=== PATIENT | female | born 1990 | race Caucasian/White ===

== ENCOUNTER → 2018-12-13 | Outpatient (CLI) | payer BC | LOC: ZCOL.LAB 16:08 | DX: L02.91 Cutaneous abscess, unspecified (principal) ==

== ENCOUNTER 2018-12-15 10:47 | Inpatient (IN) | payer BC ==
[~2018-12-15] VITALS: Ht 167.6 cm; Wt 127.3 kg
[2018-12-15] MEDS ORDERED: AVASTIN 100M25 MG/ML IV (11:06)
[2018-12-15] MEDS ORDERED: DOXYCYCLINE HY100 MG PO (11:07)
[2018-12-15] MEDS ORDERED: ZYRTEC 10MG10 MG PO (11:07)
[2018-12-15] MEDS ORDERED: GLUCOPHAGE850 MG/TAB PO (11:08)
[2018-12-15] MEDS ORDERED: HCTZ12.5TAB PO (11:08)
[2018-12-15] MEDS ORDERED: ATROVENT INHALE14 GM IH (11:09)
[2018-12-15] MEDS ORDERED: PROAIR HFA0.09 MG/AC IH (11:09)
--- NOTE | 2018-12-15 11:10 | NUR ---
Pt arrived to room 309 at this time. She is up walking in the room independently. She is A/O x3. Pt reports pain with ambulation and movement. RLQ to abdomen redenned and warm, bruising to where I&D was performed. More redness under R breast. Attempted IV start twice unsuccessfully. LILLIE Key started 20G to R wrist, flushes without complications. POC discussed with patient who verbalizes understanding. No further needs, call light within reach.
[2018-12-15 11:26] VITALS: BP 139/90; PULSE 93; TEMP 98
[2018-12-15 12:27] LABS: BASO % 0.3 % (0.0-2.0); EOS # 0.4 (0.0-0.7); EOS % 3.5 % (0-4.0); GRAN # 7.7 (1.4-6.5); GRAN % 71.6 % (42.2-75.2); HEMATOCRIT 41.3 % (37.0-47.0); HEMOGLOBIN 13.7 g/dl (12.5-16.0); LYMPH # 1.9 (1.2-3.4); LYMPH % 17.8 % (20.0-51.0); MEAN CELL VOLUME 91 fl (80.0-100.0); MEAN CORPUSCULAR HEMOGLOBIN 30 pg (27.0-31.0); MEAN CORPUSCULAR HGB CONC 33 g/dl (33.0-37.0); MONO # 0.7 (0.1-0.6); MONO % 6.4 % (1.7-9.3); PLATELET COUNT 252 K/mm3 (130-400); RED BLOOD COUNT 4.55 M/mm3 (4.10-5.30); REDCELL DISTRIBUTION WIDTH-CV 13.2 % (11.5-14.5)
[2018-12-15 12:42] LABS: ALBUMIN 4.3 gm/dL (3.5-5.0); BILIRUBIN,TOTAL 0.6 mg/dL (0.0-1.0); CALCIUM 9.7 mg/dL (8.4-10.2); CREATININE, serum 0.45 (0.52-1.25); POTASSIUM 4.2 mmol/L (3.4-5.0); TOTAL PROTEIN 8.2 gm/dL (6.4-8.2)
[2018-12-15 13:08] LABS: INR 1.2 (0.8-3.0); PROTHROMBIN TIME 13.1 SECONDS (9.7-12.8)
[2018-12-15 16:00] VITALS: BP 135/74; PULSE 91; TEMP 98.2
[2018-12-15 19:06] VITALS: BP 153/87; PULSE 92; TEMP 98.1
--- NOTE | 2018-12-15 21:00 | NUR ---
Completed assessment and medication administration; PT A&Ox4, BS active x4, HRRR, CTAB, IND AMB, LW IV with NS running at 125ml/hr, redness/rash/petechiae to abdomen, IV ABX continue as scheduled; No further assessed or verbalized concern or complaints at time of exit; Minimal pain complaints to IV without S/S of infiltration at time of assessment; PT able to IND change position in room; Personal items and call light within reach; Will continue to monitor. CDA
[2018-12-16] VITALS (7 sets, daily range): BP systolic 110–142; BP diastolic 56–84; PULSE 70–82; TEMP 97.5–98.4
--- NOTE | 2018-12-16 02:02 | NUR ---
PT resting intermittently in bed; IV NS running at 125ml/hr to LW; No further assessed or reported concerns at time of exit; PT in comfortable position in bed with personal items and call light within reach; Will continue to monitor. CDA
--- NOTE | 2018-12-16 07:17 | NUR ---
Report given to LILLIE Alanis; No significant changes or concerns at time of shift change. CDA
--- NOTE | 2018-12-16 07:27 | NUR ---
Resting quietly at this time. No pain or needs reporte. The call light is in place.
--- NOTE | 2018-12-16 07:31 | NUR ---
Report received from LILLIE Beatty.
[2018-12-16 08:16] LABS: BASO % 0.1 % (0.0-2.0); EOS # 0.3 (0.0-0.7); EOS % 3.4 % (0-4.0); GRAN # 5.8 (1.4-6.5); GRAN % 72.5 % (42.2-75.2); HEMOGLOBIN 11.9 g/dl (12.5-16.0); LYMPH # 1.3 (1.2-3.4); MEAN CELL VOLUME 93 fl (80.0-100.0); MEAN CORPUSCULAR HEMOGLOBIN 30 pg (27.0-31.0); MEAN CORPUSCULAR HGB CONC 32 g/dl (33.0-37.0); MEAN PLATELET VOLUME 11.6 fl (7.4-10.4); MONO # 0.6 (0.1-0.6); MONO % 7.4 % (1.7-9.3); PLATELET COUNT 196 K/mm3 (130-400); RED BLOOD COUNT 3.95 M/mm3 (4.10-5.30); REDCELL DISTRIBUTION WIDTH-CV 13.1 % (11.5-14.5)
[2018-12-16 08:24] LABS: HEMATOCRIT 36.7 % (37.0-47.0)
--- NOTE | 2018-12-16 09:15 | NUR ---
Assessment completed. Pt. reported wheezing when waking up this morning but resolved after 10 minutes. Upon assessment all lobes in lungs are clear with no wheezing noted. Pts abdomen on the right side shows redness, petechiae, and a rash that measures 15 cm. Pt reported her pain as an 8 out of 10 in her abdomen only when moving. Pt reported her pain is a 0 out of 10 when sitting or resting. The pt did not request any pain medications. Pt is currently sitting in her chair eating breakfast. Call light in reach. Will continue to monitor.
--- NOTE | 2018-12-16 10:40 | NUR ---
Tetanus shot administered in the Right Deltoid. Pt tolerated the injection well. Pt reports discomfort around IV site that radiates to the elbow joint. There is no redness or swelling noted. These findings were reported to this nurses preceptor, Annabelle MOREIRA.
--- NOTE | 2018-12-16 10:43 | NUR ---
SHAYLEE met with the patient to discuss a discharge plan. The patient lives in [place] with her , Lukas and a foster child. The patient does not use any DME and the patient reports independence with ADLs. The patient's PCP is Dr. Loida Talavera and the patient receives her medications from [facility] in [place]. The patient reports no difficulties obtaining her medications. The patient does not have advanced directives in the EMR and she was not interested in obtaining a DPOA-HC form at this time. The patient plans to return home upon discharge. There are no additional needs at this time.
--- NOTE | 2018-12-16 11:10 | NUR ---
Pt was provided two pillows under her left arm and wrapped in a warm blanket for comfort.
--- NOTE | 2018-12-16 11:16 | NUR ---
Provided spiritual care, visited, and prayed with the patient.
--- NOTE | 2018-12-16 13:00 | NUR ---
Pt is currently showering. Linens changed.
[2018-12-16 13:57] LABS: ALBUMIN 3.7 gm/dL (3.5-5.0); BILIRUBIN,TOTAL 0.4 mg/dL (0.0-1.0); CALCIUM 9.3 mg/dL (8.4-10.2); CREATININE, serum 0.66 (0.52-1.25); MAGNESIUM 1.8 mg/dL (1.6-2.3); POTASSIUM 4.3 mmol/L (3.4-5.0)
--- NOTE | 2018-12-16 15:00 | NUR ---
The patient voiced she was wheeze occasionally. Lungs clear throughout upon assessment. IV fluids dcd. The patient is drinking water well. The family is at the bedside. The patient was assisted with hygiene this morning and linens were change. Student, LILLIE Andersen assisting with medications and cares today. Assessment reviewed and I agree with findings.
--- NOTE | 2018-12-16 19:24 | NUR ---
BUD Bojorquez notified of the patient's situation with IV and anesthesia to be called if LILLIE Barreratruck caterer unable to start IV. Report given to LILLIE Marin to resume care.
--- NOTE | 2018-12-16 19:49 | NUR ---
Patient resting in bed, assessment completed- lungs clear, abdominal sounds active, pulses +3, cap refill <3 seconds, reports some pain improved with tylenol. Abdominal abscess redenned- traced with marker, generalized petechiae, tops of feet bruised/redenned from a shoe reaction. New IV site started by roundhouse supervisor in right wrist. IV antibiotics started. No further needs at this time.
--- NOTE | 2018-12-16 21:37 | NUR ---
Pt reports to nurse bleeding of abdominal site. Upon assessment- small drop of blood on gown, no active bleeding, pt believes her gown was rubbing against it and caused the bleeding. Covered loosely with small amount of sterile gauze to prevent rubbing.
[2018-12-17 03:26] VITALS: BP 115/59; PULSE 69; TEMP 97.8
--- NOTE | 2018-12-17 05:03 | NUR ---
Pt slept for most of the night. Recieved IV antibiotics. Pain controlled with toradol. Tylenol given right before beginning of shift, no need since. No further needs at this time.
--- NOTE | 2018-12-17 06:59 | NUR ---
Report given to LILLIE Alanis.
[2018-12-17 07:40] LABS: BASO % 0.3 % (0.0-2.0); EOS # 0.4 (0.0-0.7); EOS % 5.1 % (0-4.0); GRAN # 4.6 (1.4-6.5); GRAN % 67.2 % (42.2-75.2); HEMOGLOBIN 11.2 g/dl (12.5-16.0); LYMPH # 1.4 (1.2-3.4); LYMPH % 20.1 % (20.0-51.0); MEAN CELL VOLUME 92 fl (80.0-100.0); MEAN CORPUSCULAR HEMOGLOBIN 30 pg (27.0-31.0); MEAN CORPUSCULAR HGB CONC 33 g/dl (33.0-37.0); MEAN PLATELET VOLUME 10.8 fl (7.4-10.4); MONO # 0.5 (0.1-0.6); MONO % 6.6 % (1.7-9.3); PLATELET COUNT 201 K/mm3 (130-400); RED BLOOD COUNT 3.71 M/mm3 (4.10-5.30); REDCELL DISTRIBUTION WIDTH-CV 13.2 % (11.5-14.5)
[2018-12-17 07:45] LABS: HEMATOCRIT 34.2 % (37.0-47.0)
[2018-12-17 07:54] LABS: ALBUMIN 3.2 gm/dL (3.5-5.0); BILIRUBIN,TOTAL 0.2 mg/dL (0.0-1.0); CALCIUM 8.8 mg/dL (8.4-10.2); CREATININE, serum 0.57 (0.52-1.25); MAGNESIUM 1.8 mg/dL (1.6-2.3); POTASSIUM 4.3 mmol/L (3.4-5.0); TOTAL PROTEIN 6.2 gm/dL (6.4-8.2)
[2018-12-17 08:00] VITALS: BP 105/49; PULSE 66; TEMP 98.2
[2018-12-17] MEDS ORDERED: CLEOCIN HCL300 MG PO (10:53)
[2018-12-17] MEDS ORDERED: ZOFRAN 4MG T4 MG/TAB PO (10:53)
[2018-12-17] MEDS ORDERED: IBU800 M1 PO (10:54)
[2018-12-17 11:25] VITALS: BP 133/73; PULSE 64; TEMP 98.5
--- NOTE | 2018-12-17 11:42 | NUR ---
Discharge education completed at this time. No pain or needs reported.
--- NOTE | 2018-12-17 12:30 | NUR ---
Plan of care and discharge education completed with the patient and the patient friends per the patient's request. Escorted out via ambulation to private vehicle.
== END 2018-12-17 12:30 | disposition home or self-care (01) | DRG 603 ==
LOC: MEDICAL 10:47
PROVIDERS: Nurse Practitioner Family; ADMIT Family Medicine
DX: L02.211 Cutaneous abscess of abdominal wall (principal); Z68.42 Body mass index [BMI] 45.0-49.9, adult; L03.311 Cellulitis of abdominal wall; T63.331A Toxic effect of venom of brown recluse spider, accidental (unintentional), initial encounter; E11.9 Type 2 diabetes mellitus without complications; I10 Essential (primary) hypertension; J45.909 Unspecified asthma, uncomplicated; F41.9 Anxiety disorder, unspecified; Z88.0 Allergy status to penicillin; L40.9 Psoriasis, unspecified; E66.01 Morbid (severe) obesity due to excess calories; K58.9 Irritable bowel syndrome, unspecified
CPT/HCPCS: 99233-AI; 99239; J1670; J1885; J1956; J3370; J7030; J7040; J7050

== ENCOUNTER → 2019-03-21 | Outpatient (CLI) | payer BC ==
[~2019-03-21] VITALS: Ht 170.2 cm; Wt 134.3 kg
[~2019-03-21] MED LIST: ALBUTEROL0.83 MG/ML IH; ATROVENT INHALE14 GM IH; AVASTIN 100M25 MG/ML; CLEOCIN HCL300 MG PO; DOXYCYCLINE HY100 MG PO; GLUCOPHAGE850 MG/TAB PO; HCTZ12.5TAB PO; IBU800 M1 PO; PROAIR HFA0.09 MG/AC IH; ZESTORETIC 12.51 TAB PO; ZESTRIL 10MG10 MG PO; ZOFRAN 4MG T4 MG/TAB PO; ZYRTEC 10MG10 MG PO
[2019-03-21 08:33] VITALS: BP 134/64; PULSE 84
== END ==
LOC: LIGHT 03-07 07:43
DX: E88.81 Metabolic syndrome and other insulin resistance (principal); E11.9 Type 2 diabetes mellitus without complications; I10 Essential (primary) hypertension; E66.01 Morbid (severe) obesity due to excess calories; Z68.42 Body mass index [BMI] 45.0-49.9, adult; Z71.3 Dietary counseling and surveillance
CPT/HCPCS: G0463

== ENCOUNTER → 2019-04-02 | Outpatient (CLI) | payer BC | LOC: LIGHT 13:03 | DX: E88.81 Metabolic syndrome and other insulin resistance (principal); E11.9 Type 2 diabetes mellitus without complications; I10 Essential (primary) hypertension; E66.01 Morbid (severe) obesity due to excess calories; Z68.42 Body mass index [BMI] 45.0-49.9, adult; Z71.3 Dietary counseling and surveillance ==

== ENCOUNTER → 2019-04-18 | Outpatient (CLI) | payer BC | LOC: BHSO 08:33 | DX: Z01.818 Encounter for other preprocedural examination (principal) ==

== ENCOUNTER → 2019-04-19 | Outpatient (CLI) | payer BC ==
[~2019-04-19] VITALS: Ht 170.2 cm; Wt 138.1 kg
[2019-04-19 15:54] VITALS: BP 156/96; PULSE 68
== END ==
LOC: LIGHT 11:52
DX: E11.65 Type 2 diabetes mellitus with hyperglycemia (principal); E78.5 Hyperlipidemia, unspecified; E88.81 Metabolic syndrome and other insulin resistance; E66.9 Obesity, unspecified; Z68.42 Body mass index [BMI] 45.0-49.9, adult; Z71.3 Dietary counseling and surveillance
CPT/HCPCS: G0463

== ENCOUNTER → 2019-04-23 | Outpatient (CLI) | payer BC ==
[~2019-04-23] VITALS: Ht 170.2 cm; Wt 133.6 kg
== END ==
LOC: LIGHT 07:27
DX: E11.65 Type 2 diabetes mellitus with hyperglycemia (principal); E78.5 Hyperlipidemia, unspecified; E88.81 Metabolic syndrome and other insulin resistance; E66.01 Morbid (severe) obesity due to excess calories; Z68.42 Body mass index [BMI] 45.0-49.9, adult; Z71.3 Dietary counseling and surveillance

== ENCOUNTER → 2019-05-24 | Outpatient (CLI) | payer BC ==
[~2019-05-24] VITALS: Ht 170.2 cm; Wt 132.9 kg
[2019-05-24 17:00] VITALS: BP 130/90; PULSE 84
== END ==
LOC: LIGHT 13:50
DX: E11.65 Type 2 diabetes mellitus with hyperglycemia (principal); E78.5 Hyperlipidemia, unspecified; E88.81 Metabolic syndrome and other insulin resistance; E66.01 Morbid (severe) obesity due to excess calories; Z68.42 Body mass index [BMI] 45.0-49.9, adult; Z71.3 Dietary counseling and surveillance
CPT/HCPCS: G0463

== ENCOUNTER → 2019-06-07 | Outpatient (CLI) | payer BC | LOC: BHSO 13:54 | DX: F41.1 Generalized anxiety disorder (principal) ==

== ENCOUNTER → 2019-06-20 | Outpatient (CLI) | payer BC | LOC: BHSO 15:45 | DX: F41.1 Generalized anxiety disorder (principal) ==

== ENCOUNTER → 2019-06-21 | Outpatient (CLI) | payer BC ==
[~2019-06-21] VITALS: Ht 170.2 cm; Wt 131.5 kg
[2019-06-21 16:51] VITALS: BP 120/76; PULSE 80
== END ==
LOC: LIGHT 13:50
DX: E11.65 Type 2 diabetes mellitus with hyperglycemia (principal); E78.5 Hyperlipidemia, unspecified; E88.81 Metabolic syndrome and other insulin resistance; E66.01 Morbid (severe) obesity due to excess calories; Z68.42 Body mass index [BMI] 45.0-49.9, adult; Z71.3 Dietary counseling and surveillance
CPT/HCPCS: G0463

== ENCOUNTER → 2019-07-03 | Outpatient (CLI) | payer BC | LOC: BHSO 16:02 | DX: F41.1 Generalized anxiety disorder (principal) ==

== ENCOUNTER 2019-07-18 13:15 | Outpatient (RCR) | payer BC | END 2019-07-29 | disposition home or self-care (01) | LOC: WSPT | DX: I10 Essential (primary) hypertension (principal); E66.01 Morbid (severe) obesity due to excess calories; M54.9 Dorsalgia, unspecified; E11.9 Type 2 diabetes mellitus without complications; E28.2 Polycystic ovarian syndrome ==

== ENCOUNTER → 2019-07-25 | Outpatient (CLI) | payer BC | LOC: BHSO 16:02 | DX: F41.1 Generalized anxiety disorder (principal) ==

== ENCOUNTER → 2019-08-29 | Outpatient (CLI) | payer BC | LOC: BHSO 16:03 | DX: F41.1 Generalized anxiety disorder (principal) ==

== ENCOUNTER → 2019-09-26 | Outpatient (CLI) | payer BC | LOC: BHSO 14:59 | DX: F33.1 Major depressive disorder, recurrent, moderate (principal) ==

== ENCOUNTER → 2019-10-26 | Outpatient (CLI) | payer BC | LOC: BHSO 16:00 | DX: F41.1 Generalized anxiety disorder (principal) ==

== ENCOUNTER → 2019-11-23 | Outpatient (CLI) | payer BC | LOC: BHSO 15:59 | DX: F41.1 Generalized anxiety disorder (principal) ==

== ENCOUNTER → 2020-01-11 | Outpatient (CLI) | payer BC | LOC: BHSO 11:01 | DX: F90.0 Attention-deficit hyperactivity disorder, predominantly inattentive type (principal) ==

== ENCOUNTER → 2020-01-14 | Outpatient (CLI) | payer BC | LOC: BHSO 11:00 | DX: F41.1 Generalized anxiety disorder (principal) ==

== ENCOUNTER → 2020-01-28 | Outpatient (CLI) | payer BC | LOC: BHSO 13:10 | DX: F41.1 Generalized anxiety disorder (principal) ==

== ENCOUNTER → 2020-03-06 | Outpatient (CLI) | payer BC | LOC: BHSO 13:01 | DX: F41.1 Generalized anxiety disorder (principal) ==

== ENCOUNTER → 2020-03-13 | Outpatient (CLI) | payer BC | LOC: BHSO 13:00 | DX: F41.1 Generalized anxiety disorder (principal) ==

== ENCOUNTER → 2020-04-09 | Outpatient (CLI) | payer BC | LOC: BHSO 10:00 | DX: F41.1 Generalized anxiety disorder (principal) ==

== ENCOUNTER → 2020-04-29 | Outpatient (CLI) | payer BC | LOC: BHSO 11:49 | DX: F90.0 Attention-deficit hyperactivity disorder, predominantly inattentive type (principal) | CPT/HCPCS: G0463 ==

== ENCOUNTER → 2020-05-16 | Outpatient (CLI) | payer BC | LOC: BHSTELE 13:00 | DX: F41.1 Generalized anxiety disorder (principal) ==

== ENCOUNTER → 2020-05-27 | Outpatient (CLI) | payer BC | LOC: BHSO 14:48 | DX: F90.0 Attention-deficit hyperactivity disorder, predominantly inattentive type (principal) | CPT/HCPCS: G0463 ==